=== PATIENT | female | born 2000 | race Caucasian/White ===

== ENCOUNTER 2020-08-01 07:53 | Inpatient (IN) | payer BC, OTHER ==
[2020-07-26 09:45] LABS: ABSOLUTE EOSINOPHILS # (AUTO) 0.1 10^3/uL (0.0-0.6); ABSOLUTE LYMPHOCYTES (AUTO) 2.5 10^3/uL (0.5-4.7); ABSOLUTE MONOCYTES (AUTO) 0.8 10^3/uL (0.1-1.4); BASOPHILS % (AUTO) 0.3 % (0-2); EOSINOPHILS % (AUTO) 0.8 % (0-6); HEMATOCRIT 31.9 % (36.0-47.0); HEMOGLOBIN 10.8 g/dL (12.0-15.5); LYMPHOCYTES % (AUTO) 26.6 % (13-45); MEAN CORPUSCULAR HEMOGLOBIN 29.1 pg (27.0-33.4); MEAN CORPUSCULAR VOLUME 86 fl (80-97); MONOCYTES % (AUTO) 8.3 % (3-13); PLATELET COUNT 113 10^3/uL (150-450); RED BLOOD COUNT 3.72 10^6/uL (3.72-5.28); RED CELL DISTRIBUTION WIDTH 14.2 % (11.5-14.0); TOTAL CELLS COUNTED % (AUTO) 100 %; WHITE BLOOD COUNT 9.4 10^3/uL (4.0-10.5)
[2020-07-26 09:46] LABS: APPEARANCE,URINE CLEAR; BILIRUBIN,URINE NEGATIVE (NEGATIVE); COLOR,URINE STRAW; GLUCOSE, URINE NEGATIVE (NEGATIVE); KETONES,URINE NEGATIVE (NEGATIVE); LEUKOCYTE ESTERASE,URINE NEGATIVE (NEGATIVE); NITRITE,URINE NEGATIVE (NEGATIVE); PROTEIN,URINE NEGATIVE (NEGATIVE); URINE SPECIFIC GRAVITY 1.003; UROBILINOGEN,URINE NEGATIVE mg/dL (<2.0)
[2020-07-26 10:07] LABS: URINE AMPHETAMINES SCREEN NEGATIVE; URINE BARBITURATES SCREEN NEGATIVE; URINE BENZODIAZEPINES SCREEN NEGATIVE; URINE COCAINE SCREEN NEGATIVE; URINE MARIJUANA (THC) SCREEN NEGATIVE; URINE METHADONE SCREEN NEGATIVE; URINE PHENCYCLIDINE SCREEN NEGATIVE
[~2020-08-01 07:53] MED LIST: RINGERS SOLUTION,LACTATED 1,000 ML IV PRN
[2020-08-01] MEDS ORDERED: OXYTOCIN/NORMAL SALINE 500 ML IV PRN (08:26)
[2020-08-01] MEDS ORDERED: RINGERS SOLUTION,LACTATED 1,000 ML IV SCH (08:30)
[2020-08-01] MEDS ORDERED: PROMETHAZINE HCL INJ 25 MG/1 ML VIAL IM PRN (08:30)
[2020-08-01] MEDS ORDERED: MEASLES,MUMPS&RUBELLA VACC/PF 0.5 ML VIAL SUBCUT PRN ×2 (08:30→12:34)
[2020-08-01] MEDS ORDERED: DIPH/PERTUSS(ACELL)/TETANUS VAC/PF 0.5 ML SYR (>=10YO) IM PRN ×2 (08:30→12:34)
[2020-08-01] MEDS ORDERED: HYDROMORPHONE HCL INJ/PF 2 MG/ML AMPULE IV PRN (08:30)
[2020-08-01] MEDS ORDERED: ACETAMINOPHEN 325 MG TABLET PO PRN ×2 (08:30→12:34)
[2020-08-01] MEDS ORDERED: OXYCODONE-ACETAMINOPHEN 5-325 MG TABLET PO PRN ×5 (08:30→12:34)
[2020-08-01] MEDS ORDERED: SIMETHICONE 80 MG TAB.CHEW PO PRN ×2 (08:30→12:34)
[2020-08-01] MEDS ORDERED: ONDANSETRON 4 MG TAB.RAPDIS PO PRN (08:41)
[2020-08-01] MEDS ORDERED: ONDANSETRON HCL INJ/PF 4 MG/2 ML SDV IV PRN ×2 (08:42→12:08)
[2020-08-01] MEDS ORDERED: PRENATAL VITAMIN W DHA CAPSULE PO SCH (10:00)
[2020-08-01] MEDS ORDERED: MIDAZOLAM 2 MG/2 ML INJ ONE (10:01)
[2020-08-01] MEDS ORDERED: KETOROLAC TROMETHAMINE INJ/PF 30 MG/1 ML SDV ONE ×2 (10:01→13:38)
[2020-08-01] MEDS ORDERED: EPHEDRINE SULFATE INJ 50 MG/1 ML AMPULE ONE (10:01)
[2020-08-01] MEDS ORDERED: OXYTOCIN 10 UNIT/ML VIAL ONE (10:01)
[2020-08-01] MEDS ORDERED: FENTANYL CITRATE INJ/PF 100 MCG/2 ML AMPUL ONE ×2 (10:01→12:49)
[2020-08-01] MEDS ORDERED: ACETAMINOPHEN 1,000 MG/100 ML RTUPB IV ONE (10:01)
[2020-08-01] MEDS ORDERED: ONDANSETRON HCL INJ/PF 4 MG/2 ML SDV ONE (10:01)
[2020-08-01] MEDS ORDERED: MORPHINE SULFATE 10 MG/ML INJ ONE ×2 (10:02→14:18)
[2020-08-01] MEDS ORDERED: DEXAMETHASONE SOD PHOSPHATE INJ 4 MG/1 ML VIAL ONE (10:02)
[2020-08-01] MEDS ORDERED: OXYTOCIN/0.9 % SODIUM CHLORIDE 30 UNIT/500 ML RTUINJ ONE (10:02)
[2020-08-01] MEDS ORDERED: CEFAZOLIN 2 GM/D5W RTU 2 GM/50 ML RTUPB IV ONE (10:43)
[2020-08-01] MEDS ORDERED: IBUPROFEN 800 MG TABLET PO SCH (12:00)
[2020-08-01] MEDS ORDERED: FENTANYL CITRATE INJ/PF 100 MCG/2 ML AMPUL IV PRN ×2 (12:08)
[2020-08-01] MEDS ORDERED: MEPERIDINE HCL/PF INJ 25 MG/1 ML DISP.SYRIN IV PRN (12:08)
[2020-08-01] MEDS ORDERED: PROMETHAZINE HCL INJ 25 MG/1 ML VIAL IV PRN ×2 (12:08→12:34)
[2020-08-01] MEDS ORDERED: DIPHENHYDRAMINE HCL 50 MG/ML VIAL IV PRN (12:08)
[2020-08-01] MEDS ORDERED: RINGERS SOLUTION,LACTATED 1,000 ML IV PRN (12:34)
[2020-08-01] MEDS ORDERED: MORPHINE SULFATE 10 MG/ML INJ IV PRN (12:34)
[2020-08-01] MEDS ORDERED: OXYTOCIN/0.9 % SODIUM CHLORIDE 30 UNIT/500 ML RTUINJ IV PRN (12:34)
[2020-08-01] MEDS ORDERED: AMPICILLIN SOD/SULBACTAM 3 GM VIAL IV SCH (12:45)
--- NOTE | 2020-08-01 12:45 | Operative Report ---
Operative Report DATE OF SURGERY: 08/01/20 PREOPERATIVE DIAGNOSIS: IUP at 39+ weeks undesired fertility previous POSTOPERATIVE DIAGNOSIS: Same OPERATION: Repeat low transverse hysterotomy section with Arjay bilateral tubal ligation SURGEON: MARYURI STANLEY ANESTHESIA: Spinal TISSUE REMOVED OR ALTERED: Bilateral fallopian tube segments COMPLICATIONS: None ESTIMATED BLOOD LOSS: 1000 cc INTRAOPERATIVE FINDINGS: Male cephalic presentation Apgars of 8 and 9, there was a blood vessel that was bleeding in the midline of hysterotomy closure with that required several [id number]'s to repair PROCEDURE: The patient was taken to the operating room, prepared and draped in anormal sterile fashion in a supine position with a leftward tilt. A transverse skin incision was made with a scalpel and carried through tothe underlying layer of fascia with the same scalpel. The fascia was excised in the midline and extended laterally with Aniket. The fascia was then dissected from the rectus muscle sharply with Aniket and the rectus muscle was divided and the peritoneal cavity was entered sharply with the same Metzenbaum. With good visualization of the bladder and the uterus the bladder blade was inserted. The hysterotomy was nicked with a scalpel and extended laterally with surgeon finger fraction. The infant was thendelivered atraumatically. The nose and mouth were suctioned with a suction bulb, the cord was clamped and cut and handed off to awaiting pediatrelan wheeler. Cord blood was collected. The placenta was removed manually. The uterus was exteriorized and cleared of clots and debris. The hysterotomy was closed with 0 Monocryl in a running, locked fashion. A second layer of the same suture was used to imbricate to ensure hemostasis. A third Monocryl was used to [id number] the above-mentioned vessel that was bleeding in the lower uterine segment. We placed at least 4 betqhh-hk-hhocr's and managed to close close the bleeding at the at this point. attention was then turned to the fallopian tubes where the right fallopian tube was grasped with a Aleshia, the mesosalpinx was divided with a Bovie. a 3-1/2 cm segment of fallopian tube was tied off with 2 pieces of 2-0 chromic.this segment was ligated using Metzenbaums and the pedicles were made hemostatic with the Bovie. This procedure was repeated on the left fallopian tube without difficulty. The uterus was returned to the abdomen and peritoneal cavity was cleared of clots and debris. The pedicles were inspected and they were still hemostatic. The hysterotomy was once again reinspected due to the previous trouble with obtaining hemostasis with the hysterotomy closure . I did ask the rotating nurse to look underneath the patient to make sure that there was no significant vaginal bleeding and there was none . The anesthesiology provider notified me that the Masters was full of clear yellow urine . the rectus muscle and peritoneum were repaired with mattress stitch of 2-0 Chromic. The fascia was closed with 0-Vicryl. The subcutaneous layer was closed with plain catgut and the skin was closed with 4-0 Vicryl. The patient tolerated the procedure well. Sponge, lap, and needle counts correct x2 and the patient was taken to recovery in stable condition.
[2020-08-01] MEDS ORDERED: ACETAMINOPHEN 1,000 MG/100 ML RTUPB IV PRN (12:50)
[2020-08-01] MEDS: FENTANYL CITRATE INJ/PF 100 MCG/2 ML AMPUL IV PRN ×2 (13:20→13:40)
[2020-08-01] MEDS: DOCUSATE SODIUM 100 MG CAPSULE PO SCH ×3 (13:22→18:03)
[2020-08-01] MEDS ORDERED: AMPICILLIN SOD/SULBACTAM 3 GM VIAL ONE (13:52)
[2020-08-01] MEDS ORDERED: AMPICILLIN SODIUM/SULBACTAM NA 3 GM in NORMAL SALINE 100 ML IV SCH (14:00)
[2020-08-01] MEDS: KETOROLAC TROMETHAMINE INJ/PF 30 MG/1 ML SDV IV SCH ×2 (14:04→22:07)
--- NOTE | 2020-08-01 14:14 | Delivery Summary ---
Del Sum A-C Datetime Report Generated by CPN: 08/01/2020 14:14 DELIVERY PERSONNEL DELIVERY PERSONNEL: [id number] Delivery Doctor:: Leslie Harvey MD PAINTER AND GRADER CORK:: Jessika Cash CRNA Urban Redevelopment Specialist:: Tammy Bennett RN Neonatal Nurse Practitioner:: SIMON Torres Nursery Nurse:: Adry Ann RN Nursery Nurse:: Tammy Bennett RN [employer] Processing Labourer/RINK RAT: Mouna Kay, SALES REPRESENTATIVE DOOR TO DOOR [employer] Labourer/RINK RAT: Jazlyn Giles, ST MATERNAL INFORMATION Delivery Anesthesia: Spinal Medications After Delivery: Pitocin 30 Units in 500ml NS/D5W; Pitocin Drip 20 Units/1000ml NSS Delivery QBL: 910 Maternal Complications: None LABOR SUMMARY EDC: 08/07/2020 00:00 No. Babies in Womb: 1 Attempted: No Labor Anesthesia: None LABOR INFORMATION Oxytocin: N/A Group B Beta Strep: Positive Antibiotics # of Doses: 1 Antibiotics Time of Last Dose: 08/01/2020 11:40 Name of Antibiotic Given: Ancef 2g Steroids Given: None Reason Steroids Not Administered: Not Applicable MEMBRANES Membranes Rupture Method: Artificial Rupture of Membranes: 08/01/2020 11:49 Length of Rupture (hr): 0.02 Amniotic Fluid Color: Clear Amniotic Fluid Amount: Moderate Amniotic Fluid Odor: Normal STAGES OF LABOR Stage 3 hr: 0 Stage 3 min: 1 VAGINAL DELIVERY Episiotomy: None Laceration #1: None Laceration Extension #1: N/A Laceration Repair: Not Applicable Sponge Count Correct: N/A Sharps Count Correct: N/A CSECTION DELIVERY Primary Indication: Repeat Elective Secondary Indication: N/A CSection Urgency: Scheduled CSection Incidence: Repeat Labor: No Labor Elective: Elective CSection Incision: Lower Uterine Transverse BABY A INFORMATION Delivery Date/Time: 08/01/2020 11:50 Method of Delivery: Nurse Controlled Delivery: No Born in Route : No : N/A Forceps: N/A Vacuum Extraction: N/A Shoulder Dystocia : No PRESENTATION/POSITION BABY A Presentation: Cephalic Cephalic Presentation: Vertex Vertex Position: Left Occipital Anterior Breech Presentation: N/A PLACENTA INFORMATION BABY A Placenta Delivery Time : 08/01/2020 11:51 Placenta Method of Delivery: Manual Removal Placenta Status: Delivered SCORES BABY A Heart Rate 1 min: >100 bpm Resp Effort 1 min: Good Cry Reflex Irritability 1 min: Cough or Sneeze or Pulls Away Muscle Tone 1 min: Active Motion Color 1 min: Body Alver[place], Extremities Blue Resuscitation Effort 1 min: N/A; Tactile Stimulation SCORE 1 MIN: 9 Heart Rate 5 min: >100 bpm Resp Effort 5 min: Good Cry Reflex Irritability 5 min: Cough or Sneeze or Pulls Away Muscle Tone 5 min: Active Motion Color 5 min: Body Alverda, Extremities Blue Resuscitation Effort 5 min: N/A SCORE 5 MIN: 9 INFORMATION BABY A Gestational Age at Delivery: 39.1 Gestational Status: Full Term- 39- 40.6 Weeks Outcome : Liveborn Infant Condition : Stable Sex: Male IDENTIFICATION BABY A Verification Date/Time: 08/01/2020 11:55 ID Band Number: [id number] Mother's Name Verified: Yes RN Verifying Infant: Bhakti Bennett, RN Additional Verifying Personnel: Tomas Ann RN WEIGHT/LENGTH BABY A Birthweight (gm): 3780 Infant Weight (lb): 8 Weight (oz): 5 Length (in): 20.50 Length (cm): 52.07 CORD INFORMATION BABY A No. Cord Vessels: 3 Nuchal Cord : N/A Cord Blood Taken: Yes-For Eval (Mom's Blood Type - or O+) Infant Suction: Mouth; Nose BABY B INFORMATION : N/A
--- NOTE | 2020-08-01 14:14 | Birth Certificate Data ---
Cert Data Datetime Report Generated by CPN: 08/01/2020 14:14 CERTIFICATE DATA Delivery Provider: Leslie Harvey MD (08/01/2020 13:00:Tammy Bennett RN) 48a. Number of Prev Live Births: 1 (08/01/2020 13:06:Tammy Bennett RN) 48b. Now Livin (08/01/2020 13:06:Tammy Bennett RN) 48c. Live Births Now : 0 (08/01/2020 13:06:QS system process) 48e. Losses: 0 (08/01/2020 13:06:Tammy Bennett RN) Mother's Height 50b. Height Inches: 67 (08/01/2020 12:21:QS system process) Mother's Weight 51b. Weight at Delivery (lbs): 194 (08/01/2020 12:21:QS system process) Onset of Labor 56a. PROM >12 Hrs: 0.02 (08/01/2020 13:06:QS system process) 57a. Induction of Labor: N/A (08/01/2020 13:06:Tammy Bennett RN) 57c. Non-Vertex Presentation A: Vertex (08/01/2020 13:06:Tammy Bennett RN) 57d. Steroids - Lung Mat: None (08/01/2020 13:06:Tammy Bennett RN) 57d. Steroids - Lung Mat: Not Applicable (08/01/2020 13:06:Tmamy Bennett RN) 57e. Antibiotics During Labor: 08/01/2020 11:40 (08/01/2020 13:06:Tammy Bennett RN) 57f. Mat [place] or Temp >100.4: 97.2 (08/01/2020 13:06:Tammy eBnnett RN) 57g. Moderate/Heavy Meconium: Clear (08/01/2020 13:06:Tammy Bennett RN) 57h. Intolerance of Labor: Repeat Elective (08/01/2020 13:06:Tammy Bennett RN) : N/A (08/01/2020 13:06:Tammy Bennett RN) 57i. Epidural/Spinal Anesthesia: None (08/01/2020 13:06:Tammy Bennett RN) Method of Delivery 58a. Forceps - Unsuccessful A: N/A (08/01/2020 13:06:Tammy Bennett RN) 58b. Vacuum - Unsuccessful A: N/A (08/01/2020 13:06:Tammy Bennett RN) 58c. Presentation at 58c. Presentation at - A : Vertex (08/01/2020 13:06:Tammypatricia Bennett RN) 58c. Presentation at - A : N/A (08/01/2020 13:06:Tammy Bennett RN) 58c. Presentation at - A : Cephalic (08/01/2020 13:06:Tammypatricia Bennett RN) Final Route and Method of Del 58d. Baby A Route/Delivery: (08/01/2020 13:06:Tammy Bennett RN) 58e. Trial of Labor Attempted: No (08/01/2020 13:06:Tammy Bennett RN) 58e. Trial of Labor Attempted A: N/A (08/01/2020 13:06:Tammy Benntet RN) 58e. Trial of Labor Attempted B: N/A (08/01/2020 13:06:Tammy Bennett RN) Maternal Morbidity 59b. 3rd or 4th Degree Lacs: None (08/01/2020 13:06:Tammy Sales, RN) Birthweight Baby A: 3780 (08/01/2020 13:06:Adry Ronigg, RN) 60a. Pounds : 8 (08/01/2020 13:06:QS system process) 60b. Ounces: 5 (08/01/2020 13:06:QS system process) 61. GA at Delivery Baby A: 39.1 (08/01/2020 13:06:Tammy Sales, RN) : Full Term- 39- 40.6 Weeks (08/01/2020 13:06:QS system process) 62a. 5 Minute Baby A: 9 (08/01/2020 13:06:QS system process)
[2020-08-01] MEDS: MORPHINE SULFATE 10 MG/ML INJ IV PRN ×2 (14:20→14:39)
[2020-08-01] MEDS ORDERED: OXYCODONE-ACETAMINOPHEN 5-325 MG TABLET ONE (14:40)
[2020-08-01] MEDS: OXYCODONE-ACETAMINOPHEN 5-325 MG TABLET PO PRN (19:33)
[2020-08-02] MEDS: KETOROLAC TROMETHAMINE INJ/PF 30 MG/1 ML SDV IV SCH (05:38)
[2020-08-02 07:31] LABS: HEMATOCRIT 26.9 % (36.0-47.0); HEMOGLOBIN 8.9 g/dL (12.0-15.5); MEAN CORPUSCULAR HEMOGLOBIN 28.3 pg (27.0-33.4); MEAN CORPUSCULAR VOLUME 86 fl (80-97); PLATELET COUNT 124 10^3/uL (150-450); RED BLOOD COUNT 3.14 10^6/uL (3.72-5.28); WHITE BLOOD COUNT 13.2 10^3/uL (4.0-10.5)
[2020-08-02] MEDS: OXYCODONE-ACETAMINOPHEN 5-325 MG TABLET PO PRN ×3 (09:51→21:47)
[2020-08-02] MEDS: DOCUSATE SODIUM 100 MG CAPSULE PO SCH ×2 (09:51→18:13)
[2020-08-02] MEDS: PRENATAL VITAMIN W DHA CAPSULE PO SCH (09:51)
--- NOTE | 2020-08-02 10:25 | PDOC PROGRESS REPORT ---
Subjective-OB Progress Note for:: 08/02/20 Subjective: Pt doing well, reports light bleeding, reg diet and voiding well w + flatus. Physical Exam (OB) Vital Signs: Temp Pulse Resp BP Pulse Ox 97.7 F 77 16 112/64 100 08/02/20 09:58 08/02/20 08:00 08/02/20 08:00 08/02/20 08:00 08/02/20 08:00 Intake & Output 08/01/20 08/02/20 08/03/20 06:59 06:59 06:59 Intake Total 300 240 Output Total 3575 Balance -3275 240 Weight 87.543 kg - Dressing Removed: No Incision: Dressing Closure Type: Surgical Glue - Maternal Morbidity 59. Maternal Morbidity (serious complications experinced by the mother associated with labor and delivery: None of the above - Lochia Lochia Amount: Scant < 10 ml Lochia Color: Rubra/Red - Abdomen Description: Soft Hernia Present: No Fundal Description: Firm, Midline Fundal Height: u/u - u/2 Objective-Diagnostic Laboratory: 08/02/20 06:45 08/02/20 06:45 WBC 13.2 H RBC 3.14 L Hgb 8.9 L Hct 26.9 L MCV 86 MCH 28.3 MCHC 33.0 RDW 15.0 H Plt Count 124 L Assessment and Plan(PN) - Assessment and Plan (1) S/P repeat low transverse Is this a current diagnosis for this admission?: Yes (2) Status post tubal ligation at time of delivery, current hosp Is this a current diagnosis for this admission?: Yes - Time Spent with Patient Time with patient: Less than 15 minutes Medications reviewed and adjusted accordingly: Yes - Disposition Anticipated Discharge Disposition: Home, Self Care Anticipated Discharge Timeframe: within 24 hours
[2020-08-02] MEDS: IBUPROFEN 800 MG TABLET PO SCH ×2 (18:13→23:40)
[2020-08-03] MEDS: IBUPROFEN 800 MG TABLET PO SCH ×2 (06:00→11:57)
[2020-08-03] MEDS: DOCUSATE SODIUM 100 MG CAPSULE PO SCH (09:52)
[2020-08-03] MEDS: PRENATAL VITAMIN W DHA CAPSULE PO SCH (09:53)
--- NOTE | 2020-08-03 10:07 | PDOC DISCHARGE SUMMARY ---
Impression - Admit/DC Date/PCP Admission Date/Primary Care Provider: 08/01/20 07:53 MARYURI STANLEY MD Discharge Date: 08/03/20 - Discharge Diagnosis (1) S/P repeat low transverse Is this a current diagnosis for this admission?: Yes (2) Status post tubal ligation at time of delivery, current hosp Is this a current diagnosis for this admission?: Yes - Additional Information Discharge Diet: Regular Discharge Activity: Balance Activity w/Rest, No Lifting Over 10 Pounds, No Lifting/Push/Pulling, Pelvic Rest, No tub bath Referrals: MARYURI STANLEY MD [Primary Care Provider] - Prescriptions: Ibuprofen [Motrin 800 mg Tablet] 800 mg PO Q8HP PRN #60 tablet PRN Reason: Oxycodone HCl/Acetaminophen [Percocet 5-325 mg Tablet] 1 tab PO Q4HP PRN #20 tablet PRN Reason: Home Medications: Ferrous Sulfate [Feosol 325 mg Tablet] 325 mg PO DAILY 08/02/20 Vits96/Iron Fum/Folic [ Tablet] 1 tab PO DAILY 08/02/20 Ibuprofen [Motrin 800 mg Tablet] 800 mg PO Q8HP PRN #60 tablet 08/03/20 Oxycodone HCl/Acetaminophen [Percocet 5-325 mg Tablet] 1 tab PO Q4HP PRN #20 tablet 08/03/20 Hospital Course 59. Maternal Morbidity (serious complications experinced by the mother associated with labor and delivery: None of the above Results Laboratory Results: WBC 13.2 10^3/uL (4.0-10.5) H 08/02/20 06:45 RBC 3.14 10^6/uL (3.72-5.28) L 08/02/20 06:45 Hgb 8.9 g/dL (12.0-15.5) L 08/02/20 06:45 Hct 26.9 % (36.0-47.0) L 08/02/20 06:45 MCV 86 fl (80-97) 08/02/20 06:45 MCH 28.3 pg (27.0-33.4) 08/02/20 06:45 MCHC 33.0 g/dL (32.0-36.0) 08/02/20 06:45 RDW 15.0 % (11.5-14.0) H 08/02/20 06:45 Plt Count 124 10^3/uL (150-450) L 08/02/20 06:45 Lymph % (Auto) 26.6 % (13-45) 07/26/20 09:13 [place] % (Auto) 8.3 % (3-13) 07/26/20 09:13 Eos % (Auto) 0.8 % (0-6) 07/26/20 09:13 Baso % (Auto) 0.3 % (0-2) 07/26/20 09:13 Absolute Neuts (auto) 6.0 10^3/uL (1.7-8.2) 07/26/20 09:13 Absolute Lymphs (auto) 2.5 10^3/uL (0.5-4.7) 07/26/20 09:13 Absolute Monos (auto) 0.8 10^3/uL (0.1-1.4) 07/26/20 09:13 Absolute Eos (auto) 0.1 10^3/uL (0.0-0.6) 07/26/20 09:13 Absolute Basos (auto) 0.0 10^3/uL (0.0-0.2) 07/26/20 09:13 Seg Neutrophils % 64.0 % (42-78) 07/26/20 09:13 Urine Color STRAW 07/26/20 09:13 Urine Appearance CLEAR 07/26/20 09:13 Urine pH 7.0 (5.0-9.0) 07/26/20 09:13 Ur Specific [place] 1.003 07/26/20 09:13 Urine Protein NEGATIVE mg/dL (NEGATIVE) 07/26/20 09:13 Urine Glucose (UA) NEGATIVE mg/dL (NEGATIVE) 07/26/20 09:13 Urine Ketones NEGATIVE mg/dL (NEGATIVE) 07/26/20 09:13 Urine Blood NEGATIVE (NEGATIVE) 07/26/20 09:13 Urine Nitrite NEGATIVE (NEGATIVE) 07/26/20 09:13 Urine Bilirubin NEGATIVE (NEGATIVE) 07/26/20 09:13 Urine Urobilinogen NEGATIVE mg/dL (<2.0) 07/26/20 09:13 Ur Leukocyte Esterase NEGATIVE (NEGATIVE) 07/26/20 09:13 Urine WBC (Auto) 0 /HPF 07/26/20 09:13 Urine RBC (Auto) 0 /HPF 07/26/20 09:13 Urine Bacteria (Auto) TRACE /HPF 07/26/20 09:13 Squamous Epi Cells Auto 6 /HPF 07/26/20 09:13 Urine Mucus (Auto) RARE /LPF 07/26/20 09:13 Urine Ascorbic Acid NEGATIVE (NEGATIVE) 07/26/20 09:13 Urine Opiates Screen NEGATIVE 07/26/20 09:13 Urine Methadone Screen NEGATIVE 07/26/20 09:13 Ur Barbiturates Screen NEGATIVE 07/26/20 09:13 Ur Phencyclidine Scrn NEGATIVE 07/26/20 09:13 Ur Amphetamines Screen NEGATIVE 07/26/20 09:13 U Benzodiazepines Scrn NEGATIVE 07/26/20 09:13 Urine Cocaine Screen NEGATIVE 07/26/20 09:13 U Marijuana (THC) Screen NEGATIVE 07/26/20 09:13 COVID-19 Source See comment 07/26/20 09:14 COVID-19 (SIN) Not Detected (Not Detect) 07/26/20 09:14 Blood Type O POSITIVE 07/31/20 09:30 Antibody Screen NEGATIVE 07/31/20 09:30 Plan Plan of Treatment: follow up in one week at [facility] for incision check
[2020-08-03 11:24] VITALS: BP 117/73
== END 2020-08-03 13:05 | disposition home or self-care (01) | DRG 785 ==
LOC: 2S 07:53
PROVIDERS: ADMIT Obstetrics & Gynecology; ATTEND Obstetrics & Gynecology
PROC: 10D00Z1 Extraction of Products of Conception, Low, Open Approach (ICD-10-PCS; principal; 2020-08-01)
PROC: 0UB70ZZ Excision of Bilateral Fallopian Tubes, Open Approach (ICD-10-PCS; 2020-08-01)
DX: O34.211 Maternal care for low transverse scar from previous cesarean delivery (principal); Z30.2 Encounter for sterilization; O99.02 Anemia complicating childbirth; D64.9 Anemia, unspecified; O99.824 Streptococcus B carrier state complicating childbirth; Z20.822 Contact with and (suspected) exposure to COVID-19; Z3A.39 39 weeks gestation of pregnancy; Z37.0 Single live birth
CPT/HCPCS: 1961; 36415; 59025; 80307; 81001; 85025; 85027; 86850; 86900; 86901; 87635; 88302; 94760; 94799; C9803; J0131; J0295; J0690; J1100; J1885; J2250; J2270; J2405; J2590; J3010; J3490; J7050